=== PATIENT | female | born 1960 | race African-American/Black ===

== ENCOUNTER → 2023-11-14 | Day surgery (SDC) | payer BC ==
[~2023-11-14] MED LIST: LIDOCAINE HCL 2% LOCAL INJ 5 ML SDV VIAL INJ ONE; MIDAZOLAM HCL 2 MG/2 ML VIAL ONE; PROPOFOL IV EMULSION 10 MG/ML 20 ML VIAL ONE
[2023-11-14] MEDS: LACTATED RINGER'S 1,000 ML ONE (10:57)
[2023-11-14 12:51] VITALS: TEMP 98.6
[2023-11-14 13:11] VITALS: BP 160/95; PULSE 62; RESP 18; O2SAT 100
== END | disposition home or self-care (01) ==
LOC: OR 10:43
PROVIDERS: ATTEND Internal Medicine Gastroenterology
DX: Z12.11 Encounter for screening for malignant neoplasm of colon (principal); D12.4 Benign neoplasm of descending colon; K64.8 Other hemorrhoids; M06.9 Rheumatoid arthritis, unspecified; E11.9 Type 2 diabetes mellitus without complications; R00.1 Bradycardia, unspecified; Z01.810 Encounter for preprocedural cardiovascular examination; Z68.35 Body mass index [BMI] 35.0-35.9, adult
CPT/HCPCS: 45384; 93005; J2001; J2250; J2704; J7121; 45378